=== PATIENT | female | born 1960 | race Caucasian/White ===

== ENCOUNTER 2022-12-07 00:23 | Day surgery (SDC) | payer BC, SELFPAY ==
[2022-11-26 09:13] VITALS: BMI 30.6
--- NOTE | 2022-12-06 19:50 | PM.HPGS ---
History of Present Illness History of Present Illness Consent: Risks, benefits, and alternatives have been discussed and questions answered. Patient agrees to proceed with procedure. Chief complaint: neoplasm screening Narrative: Shweta Dodson is a 61 year old female referred for colon cancer screening Review of Systems Review of Systems: All systems reviewed & are unremarkable except as noted in HPI and below PMFSH Social History Social History Smoking status: Never smoker Alcohol intake: current Alcohol use details: rarely Substance use: never Substance use type: does not use Living arrangements: with family Spiritual care concerns: No Meds Home Medications and Allergies Home Medications Medication Instructions Recorded Confirmed Type alprazolam 0.25 mg tablet 0.25 mg PO PRN PRN Anxiety 11/26/22 11/26/22 History bupropion HCl 150 mg 24 hr tablet, 150 mg PO DAILY 11/26/22 11/26/22 History extended release citalopram 40 mg tablet 40 mg PO DAILY 11/26/22 11/26/22 History ergocalciferol (vitamin D2) 1,250 1,250 mcg PO DAILY 11/26/22 11/26/22 History mcg (50,000 unit) capsule pantoprazole 40 mg tablet,delayed 40 mg PO DAILY 11/26/22 11/26/22 History release simvastatin 20 mg tablet 20 mg PO DAILY 11/26/22 11/26/22 History Allergies Allergy/AdvReac Type Severity Reaction Status Date / Time metronidazole Allergy Flushing Verified 12/07/22 12:01 Penicillins Allergy Rash Verified 12/07/22 12:01 Exam Const: General: alert Orientation/consciousness: patient oriented x3 Resp: Auscultation: clear to auscultation bilaterally Cardio: Rhythm: regular rhythm GI: GI Palp: Yes Soft to palpation and No Tenderness to palpation present (GI) Neuro: General: patient oriented x3 Assessment and Plan Assessment and plan (1) Colon cancer screening: Code(s): Z12.11 - Encounter for screening for malignant neoplasm of colon Status: Acute Assessment and Plan: Colonoscopy with possible biopsy or polypectomy or cautery or injection of substances.
[2022-12-07 12:04] VITALS: BP 138/82; PULSE 80; RESP 18; TEMP 36.3; O2SAT 96
[2022-12-07 12:24] VITALS: BP 130/78; PULSE 71; RESP 19; O2SAT 99
[2022-12-07] MEDS: LACTATED RINGERS 1,000 ML 150 ML IV CONT (12:35)
--- NOTE | 2022-12-07 12:55 | P.PNAN_ITS ---
Anes - Initial Pre Proc Eval Procedure: Operation Date: 12/07/22 13:30 Proposed Procedures p Screening Colonoscopy - Charanjit Cantor MD Date/Time: 12/07/22 12:55 Surgeon: Charanjit Cantor MD Pre Op Diagnosis: neoplasm screening Patient Data Age: 61 Gender: F Height: 1.68 m Weight: 86 kg Last Vital Signs Temp 97.3 F L 12/07/22 12:04 Pulse 80 12/07/22 12:04 Resp 18 12/07/22 12:04 BP 138/82 12/07/22 12:04 Pulse Ox 96 12/07/22 12:04 O2 Del Method Room Air 12/07/22 12:04 Allergies Allergy/AdvReac Type Severity Reaction Status Date / Time metronidazole Allergy Flushing Verified 12/07/22 12:01 Penicillins Allergy Rash Verified 12/07/22 12:01 Home Medications Medication Instructions Recorded Confirmed Type alprazolam 0.25 mg tablet 0.25 mg PO PRN PRN Anxiety 11/26/22 11/26/22 History bupropion HCl 150 mg 24 hr tablet, 150 mg PO DAILY 11/26/22 11/26/22 History extended release citalopram 40 mg tablet 40 mg PO DAILY 11/26/22 11/26/22 History ergocalciferol (vitamin D2) 1,250 1,250 mcg PO DAILY 11/26/22 11/26/22 History mcg (50,000 unit) capsule pantoprazole 40 mg tablet,delayed 40 mg PO DAILY 11/26/22 11/26/22 History release simvastatin 20 mg tablet 20 mg PO DAILY 11/26/22 11/26/22 History Patient hx anesthesia problems: none Family hx anesthesia problems: none Results Review: All pre-operative results and documents have been reviewed as part of the pre- operative evaluation. [facility] Social History Social History Smoking status: Never smoker Alcohol intake: current Alcohol use details: rarely Substance use: never Substance use type: does not use Living arrangements: with family Spiritual care concerns: No Anes - Eval Final PreProcedure Day of Procedure 12/07/22 12:55 Patient weight: obese Heart: regular rate and rhythm Lungs: clear to auscultation Airway: Mallampati scale class II Neurological: alert and oriented Last oral intake: >/= 8 hours ASA classification: II Emergent: no Anesthetic plan: proceed Anesthesia type and monitoring: general GIVS and standard monitoring Results Review: All pre-operative results and documents have been reviewed as part of the pre- operative evaluation. Informed Consent: The patient's anesthetic plan and its attendant risks and benefits were discussed with the patient/family/POA. Questions were solicited and answers provided to the satisfaction of the patient/family/POA.
[2022-12-07 13:04] VITALS: BP 104/62; PULSE 70; RESP 14; O2SAT 99
[2022-12-07 13:14] VITALS: BP 121/72; PULSE 73; RESP 20; O2SAT 99
== END 2022-12-07 13:34 | disposition home or self-care (01) ==
PROVIDERS: PCP Internal Medicine; Visit Provider Internal Medicine Gastroenterology
PROC: 0DJD8ZZ Inspection of Lower Intestinal Tract, Via Natural or Artificial Opening Endoscopic (ICD-10-PCS; CPT 45378; principal; 2022-12-07 13:30)
DX: Z12.11 Encounter for screening for malignant neoplasm of colon (principal); E66.9 Obesity, unspecified; Z68.30 Body mass index [BMI] 30.0-30.9, adult
CPT/HCPCS: 45378; J2704; J7120